=== PATIENT | male | born 1960 | race Caucasian/White ===

== ENCOUNTER 2023-08-08 06:05 | Day surgery (SDC) | payer OTHER, SELFPAY ==
[2023-07-28 09:55] VITALS: BMI 36.4
[2023-07-28 10:26] LABS: % Basophils 0.7 % (0-2); % Immature Granulocytes 0.1 % (0-0.5); % Lymphocytes 26.3 % (20.5-51.1); % Monocytes 9.4 % (1.7-9.3); % Neutrophils 62.5 % (42.2-75.2); Absolute Basophils 0.1 10^3/uL (0-0.2); Absolute Eosinophils 0.1 10^3/uL (0-0.7); Absolute Lymphocytes 1.9 10^3/uL (1.2-3.4); Absolute Monocytes 0.7 10^3/uL (0.1-0.6); Absolute Neutrophils 4.4 10^3/uL (1.4-6.5); Hematocrit 44.8 % (39.0-52.0); Hemoglobin 15.3 g/dL (13.0-18.0); Mean Corp Hgb Conc. 34.2 g/dL (33.0-37.0); Mean Corpuscular Hgb 31.6 pg (27.0-31.0); Mean Corpuscular Volume 92.6 fL (80.0-94.0); Mean Platelet Volume 10.4 fL (7.4-10.4); Nucleated Red Blood Cells % 0 % (-); Platelet Count 162 10^3/uL (130-400); Red Blood Cell Count 4.84 10^6/uL (4.70-6.10); Red Cell Dist. Width 13.1 % (11.5-14.5); White Blood Cell Count 7.1 10^3/uL (4.8-10.8)
[2023-07-28 10:50] LABS: ALT (SGPT) 35 U/L (0-50); AST (SGOT) 28 U/L (17-59); Albumin 3.8 g/dl (3.5-5.0); Alkaline Phosphatase 56 U/L (38-126); Blood Urea Nitrogen 21 mg/dl (9-20); Calcium 10.2 mg/dl (8.4-10.2); Carbon Dioxide 32 mmol/L (22-30); Chloride 106 mmol/L (98-107); Estimated Creatinine Clearance 68 ml/min; Glucose 112 mg/dl (70-99); Sodium 143 mmol/L (135-145); Total Bilirubin 2.3 mg/dl (0.2-1.3); Total Protein 6.3 g/dl (6.3-8.2); eGFR 56.13
[2023-08-08] VITALS (52 sets, daily range): BP systolic 67–119; BP diastolic 46–87; BMI 35.7
--- NOTE | 2023-08-08 09:29 | ITS.CL.ABL ---
[facility] - Ablation
Ablation
Procedure Report:
AFIB ablation:
Mr. Huerta is a very pleasant 63 yr old gentleman (known to Dr. Robledo, his primary enterprise analyst), with non-ischemic cardiomyopathy, h/o persistent atrial fibrillation (status post PVI 11/08/2021 -[facility]) on Tikosyn and Eliquis, presented with
recurrent paroxysmal atrial fibrillation and presented today to the EP lab for atrial fibrillation ablation
Date of the Procedure:
08/08/2023
Indications:
Post ablation recurrent atrial fibrillation
Pre-Operative Diagnosis:
Post ablation Atrial fibrillation
Post-Operative Diagnosis:
Recurrent post ablation Atrial fibrillation
Procedure Performed:
Atrial fibrillation Redo ablation with wide area circumferential ablation (WACA) approach for pulmonary vein re-isolation
Performing Physician:
Mateo Rosario MD
Assistants:
EP staff
Anesthesia:
See anesthesia records
Detailed Description of the Procedure:
Written informed consent was obtained from the patient after a full explanation of the risks and benefits of the procedure including the risks of sedation and anesthesia.
The patient was brought to the electrophysiology laboratory in stable condition in fasting state. Continuous electrocardiographic and hemodynamic monitoring was initiated.
The initial rhythm was atrial fibrillation but converted to normal sinus rhythm spontanouelsy.
The procedure site was meticulously prepared with surgical scrub and allowed to dry with no pooling. Sterile draping was applied to cover the procedure site. The image intensifier was draped with sterile bag and positioned over the patient. After
infusion of local anesthetic, vascular access was obtained under ultrasound guidance and sheaths were placed over guide wire as detailed below.
Sheath and Catheter Placement:
The following catheters / sheaths were placed
Sheaths:
��������� Agilis sheath in right femoral vein upgraded from 8Fr in right femoral vein
��������� 9Fr in left femoral vein
��������� 7Fr in left femoral vein
Catheters:
��������� [employer] Braden Thermoc[employer] STSF bidirectional� - at locations of HRA, RV, LA and LV.
��������� Pentaray catheter � at locations of RA, RV, LA and LV
��������� ICE catheter -AcuNav -� at locations of RA, SVC, and RV.
��������� Decapolar catheter in RA and CS
Intracardiac ECHO:
An 8-Qatari AcuNav intracardiac ECHO (ICE) probe was advanced through the 9-Qatari sheath in the right femoral vein into the right atrium under fluoroscopic and ICE ultrasound image guidance and a baseline ECHO study was performed. The left atrial
size was dilated. There was mild to moderate tricuspid regurgitation. The aortic valve was grossly normal. There was moderate to severely reduced left ventricular systolic functions. There is no pericardial effusion. The ESVIN has decreased velocities
noted on Doppler. All the four veins were identified and has good flow identified.
During the procedure, ICE was used for monitoring of complications, guidance of trans-septal puncture, monitor the catheter position and tracking ablation lesions. No change in the pericardial space noted throughout the procedure.
Trans-septal Puncture:
Heparin was initiated and infused to maintain appropriate ACT. A J-tipped guidewire was advanced through the 8-Qatari sheath in the right femoral vein into the superior vena cava under fluoroscopic and ICE guidance. The 8-Qatari sheath was exchanged
for an Agilis sheath which was advanced into the superior vena cava. A BRK trans-septal needle was advanced until the tip was slightly behind the tip of the dilator inside the sheath. The apparatus was withdrawn until it was in contact with the
fossa ovalis. The position was adjusted based on fluoroscopy and ultrasound images from ICE. Under fluoroscopic, hemodynamic and ICE ultrasound guidance, left atrium was cannulated by advancing the needle. Once atrial septum was cannulated, the
needle was pulled back and a BMW guide wire was advanced through the needle into the left atrium. The guide wire was advanced into the left superior pulmonary vein. Both the sheath and the dilator was advanced into the left atrium under fluoro and
ICE guidance. The dilator with the needle was withdrawn. Blood was aspirated from the Agilis sheath and arterial blood confirmed. The sheath was flushed. Saline injection noted into the left atrium on ICE. The mapping catheter was advanced in the
Agilis sheath into the left pulmonary vein.
3D Electroanatomic Mapping:
Using the Pentaray catheter advanced through Agilis sheath into the left atrium, an electroanatomic map (EAM) of the left atrium was created using [employer] Carto mapping system. The map was used for localization of catheter position and
tacking of ablation lesions. The EAM of the left atrium showed 4 pulmonary veins with left superior pulmonary vein and both of the right sided PVs were electrically connected to the body the LA. It showed minimal scar in the LA body. The LA was
dilated in size.
Following the EAM, preparation were made for ablation.
Ablation:
Ablation # 1: Pulmonary vein Isolation:
Radiofrequency ablation was performed using an open irrigation, force-sensing 3.5mm radiofrequency ablation catheter ([employer] STSF) by completing the circumferential lesions around the left and right pulmonary veins achieving pulmonary vein
isolation.
A full posterior line was created for the right sided PVs and roof and anterior areas were ablated for the LSPV.
All the ablation lesions were guided by the [employer] SURPOINT module with the posterior lesions were limited to 45 morataya for SURPOINT lesion index goal of 400 and anterior wall lesions were limited to SURPOINT index goal of 450.
The esophagus was noted to be on the mid of the LA based on the locations of the esophageal temperature probe. Ablation was stopped for any temperature increase of 0.1 degree C. Max esophageal temperature was 38.0C.
Confirmation of the PVI and bidirectional block:
Following achievement of entrance block at the pulmonary veins, pacing from the pentaray in each of the four veins at 10 milliamps for 2 milliseconds showed entrance and exit block.
EP study:
Normal AV conduction noted.
All PVI were rechecked at the end of the case and remained isolated with dissociated and local capture with pacing. Entrance and exit block were demonstrated in all veins.
Procedure End
ICE study was done again that showed no epicardial accumulation. No complications noted.
Following the completion of the EP study, catheters were removed. Protamine 40 mg was given at the end of the procedure and ACT was checked repeatedly. The sheaths were removed and hemostasis achieved with manual compression after acceptable ACT is
achieved.
Left atrial Pressure:
Pre-Procedure: Mean LA pressure was 17mmHg
Estimated Blood loss:
<10 cc
Specimens Removed:
None.
Implants / Devices:
None
Urine output:
None
Packs / Drains/ Tubes:
None
Instrument / Sponge Count Correct:
Yes
Complications of the Procedure:
None
Condition of Patient at Time of Transfer:
Hemodynamically stable with no neurological or vascular compromise.
Summary:
Successful Redo atrial fibrillation ablation with circumferential bidirectional line of block at pulmonary venin antra (Pulmonary vein isolation)
Figures from the Procedure:
Figure 1: The electroanatomic mapping (EAM) of the left atrium with bipolar voltage (purple indicates normal electrical activity with red as no myocardial muscle electric activity indicating a line of block or scar.
--- NOTE | 2023-08-08 09:50 | PTCARENOTE ---
Received pt from PVI procedure. Pt arrived drowsy but easily arousable. Pt quickly became awake, alert, and oriented x3. Pt follow commands. Pt's speech is clear and appropriate. No facial droop noted. Pupils equal and reactive. Equal strength noted
in bilateral upper extremities. Normal plantar and dorsal flexion. Pt's blood pressure is 79's-low 90's/ 60's. Pt asymptomatic. Pt just states he is drowsy. Alayna Edward NP made aware. No further treatment ordered at this time. Will continue to monitor.
--- NOTE | 2023-08-08 10:04 | PTCARENOTE ---
Alayna Edward GENERAL CARGO CLERK at pt bedside speaking to and assessing pt. Pt remains asymptomatic with low blood pressure. No further treatment ordered at this time. Will continue to monitor.
--- NOTE | 2023-08-08 10:34 | PTCARENOTE ---
Addendum entered by Anat Kaufman RN 08/08/23 10:41:
NSS IVF's opened wide
Original Note:
Pt's blood pressure is now 67/46 on the right and 69/55 on the left. Pt remains asymptomatic. He is only stating he is tired. Pt placed in trendelenberg and IVF's opened wide. Dr Tripathi, anesthesiologist, and Alayna Edward LINEN ROOM WORKER made aware. Dr Tripathi at
pt bedside. assessing pt.
[2023-08-08] MEDS: NSS 500 IV (10:35)
--- NOTE | 2023-08-08 10:48 | PTCARENOTE ---
electronic service technician at pt bedside performing echocardiogram.
--- NOTE | 2023-08-08 10:51 | PTCARENOTE ---
Alayna Edward CONFERENCE DIRECTOR at pt bedside assessing pt.
[2023-08-08] MEDS: ANESTHETIC LOZENGE 1 LOZENGE PO (11:18)
--- NOTE | 2023-08-08 11:18 | CARDSERVLU ---
Echocardiogram with [facility] completed after protocol screening completed. Allergies verified.
Patent IV site: ___left wrist_
IV site flushed with 0.9% NaCl pre and post administration.
Diluted bolus method utilized to enhance visualization of ventricular wen.
Total volume given: __3.5__ mL
Patient tolerated all procedures well without complications.
--- NOTE | 2023-08-08 12:50 | PTCARENOTE ---
Dr Rosario is at pt bedside speaking to pt
--- NOTE | 2023-08-08 15:18 | W.PN.UPDATE ---
Update Note
Progress Note Update
63 yo WM s/p PVI (same day) He feels good, no cp, sob, mini diet, R fem site c/d/i no HT< soft, EKG SR with mildly prolonged Qtc 511. He had f/u Echo to assess EF as ICE looked worse than LVEF by echo 50% with no effusion. He will continue OAC
Eliquis dose at home 5pm. He will continue dofetilide, metoprolol and PPI. Activity restrictions reviewed. 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 He is for d/c home after 2pm.
[2023-08-14 08:58] LABS: ACT-LR - POC 319 Seconds (116-155)
[2023-08-14 08:58] LABS: ACT-LR - POC 285 Seconds (116-155)
== END 2023-08-08 14:25 | disposition home or self-care (01) ==
LOC: CATH 06:05
PROVIDERS: ATTENDING PHYSICIAN Internal Medicine Cardiovascular Disease; FAMILY PHYSICIAN Family Medicine
DX: I48.0 Paroxysmal atrial fibrillation (principal); Z79.01 Long term (current) use of anticoagulants; I42.8 Other cardiomyopathies
CPT/HCPCS: 93308; 93321; 93325; C1769; C1894; C1730; C1732; C1766; C1892; C1759; 36415; 76937; 80053; 85025; 86850; 86900; 86901; 93005; 93656; Q9950

== ENCOUNTER → 2024-01-02 07:15 | Outpatient (REF) | payer OTHER, SELFPAY | LOC: HWRCS 07:15 | PROVIDERS: ATTENDING PHYSICIAN Internal Medicine Cardiovascular Disease; FAMILY PHYSICIAN Family Medicine | DX: I42.8 Other cardiomyopathies (principal) | CPT/HCPCS: 93306 ==